=== PATIENT | female | born 1980 | race Caucasian/White ===

== ENCOUNTER 2017-05-04 02:45 | Inpatient (IN) | payer OTHER, MEDICAID ==
[~2017-05-04] VITALS: Ht 160 cm; Wt 122.2 kg
[2017-05-04 04:16] LABS: BASOPHIL % 0.3 % (0-2); PLATELET COUNT 275 x10^3mcL (130-400)
[2017-05-04 04:17] LABS: RED CELL DISTRIBUTION WIDTH 15.8 % (11.5-14.5)
[2017-05-04 04:24] LABS: CALCIUM 8.7 mg/dL (8.5-10.1); CARBON DIOXIDE 25.4 mmol/L (21-32); CHLORIDE SERUM 101 mmol/L (98-107); CREATININE SERUM 0.8 mg/dL (0.6-1.0); GFR1 > 60 mL/min; GLUCOSE SERUM 128 mg/dL (74-106); POTASSIUM SERUM 3.4 mmol/L (3.5-5.1); SODIUM SERUM 137 mmol/L (136-145)
[2017-05-04 04:37] LABS: ALBUMIN 3.8 g/dL (3.4-5.0); ALKALINE PHOSPHATASE 105 U/L (46-116); ALT/SGPT 38 U/L (14-59); AST/SGOT 34 U/L (15-37); BILIRUBIN TOTAL 0.36 mg/dL (0.20-1.00); CHOLESTEROL 151 mg/dL (<200); HDL CHOLESTEROL 59 mg/dL (40-60); TOTAL PROTEIN, SERUM 6.8 g/dL (6.4-8.2)
[2017-05-04] MEDS ORDERED: BUPROPION HCL150 M1 PO (05:33)
[2017-05-04] MEDS ORDERED: NEURONTIN600 MG PO (05:36)
[2017-05-04] MEDS ORDERED: MELOXICAM15 M1 PO (05:38)
[2017-05-04] MEDS ORDERED: COLACE100 MG PO (05:38)
[2017-05-04] MEDS ORDERED: SEROQUEL25 MG PO (05:39)
[2017-05-04] MEDS ORDERED: SYNTHROID0.05 MG PO (05:40)
[2017-05-04] MEDS ORDERED: LAMOTRIGINE100 M1 PO (05:41)
[2017-05-04] MEDS ORDERED: CYMBALTA60 M1 PO (05:42)
[2017-05-04 05:49] LABS: CHOLESTEROL/HDL RATIO 2.8; MAGNESIUM 2.1 mg/dL (1.8-2.4)
[2017-05-04 06:05] LABS: FREE T4 1.16 ng/dL (0.76-1.46); FREE THYROXINE INDEX 3.4 ug/dL (1.4-4.5); T4(THYROXINE) 9.9 ug/dL (4.7-13.3)
[2017-05-04 06:27] VITALS: BP 125/74
--- NOTE | 2017-05-04 06:37 | NUR ---
RECEIVED PT ON THE FLOOR. PT AAOX4. DENIES OF FREITAS/DIZZINESS, ON TELE MON 37 SR. DENIES OF ANY CHEST DISCOMFORT AT THIS TIME. PER PULSES MOD. NEG ON EDEMA. SCD'S APPLIED, IN RA WITH SAT OF 98%. BREATHING EVENLY AND UNLABORED. NO SOB NOTED. LUNGS CTA. BS ACTIVE. ABD ROUND AND OBESE. LAST BM TODAY DIARRHEA PER PT. VOIDS FREELY WITHOUT ANY PAIN. AMBULATES SLOWLY BUT STEADILY. ECCHYMOSIS ON R ORBIT. ADMITS TO A 4/10 PAIN ON R ORBIT. IV ON RAC PATENT. SAFETY MEASURES ENSURED. INSTRUCTED PT TO REPORT FOR ANY NEUROLOGICAL CHANGES OR IF EXPERIENCING N/V. AT THE BEDSIDE. SAFETY MEASURES ENSURED. INSTRUCTED PT TO CALL FOR ANY NEEDS/ASSISTANCE. CALL LIGHT WITHIN REACH. WILL CONT TO MONITOR PT.
[2017-05-04 07:42] LABS: T3 TOTAL 0.95 ng/mL
--- NOTE | 2017-05-04 08:47 | NUR ---
AT 0710 - RECEIVED PATIENT FROM NIGHT NURSE. PATIENT AWAKE, ALERT AND ORIENTED. NO C/O PAIN AT THIS TIME. IV INFUSING NS AT 150ML/HR. AT 0830 - SEEN BY DR NEAL DURING MORNING ROUNDS. NEW ORDERS RECEIVED. AT 0845 - ECHOCARDIOGRAM IN PROGRESS. RECEIVED ORDER FOR TRANSFER TO HIGHER LEVEL OF CARE - FACILLITY WITH OTOLANGOTOMY OR FACIOMAXILLARY SURGERY.
[2017-05-04 09:41] VITALS: BP 117/68
--- NOTE | 2017-05-04 10:57 | NUR ---
AT 1000 - IV IN RAC INFILTRATED. IV CATHETER REMOVED INTACT. IV RESITED IN LFA AND IV INFUSION OF NS RESUMED AT 150ML/HR. AT 1025 - PATIENT C/O NAUSEA AND VOMITIED SMALL AMOUNT OF BILARY FLUID. MEDICATED WITH IV ZOFRAN PER EMAR URINE COLLECTED AND TAKEN TO LAB FOR URINE CX AND UDS. AT 1055 - EATING SOME BREAKFAST AT THIS TIME. ICE PACK APPLIED TO R FACE PER NEW ORDER.
[2017-05-04 12:02] LABS: AMPHETAMINE QUAL UR NONE DETECTED (NEG <=1000)
[2017-05-04 13:18] VITALS: BP 111/54
--- NOTE | 2017-05-04 13:27 | NUR ---
PATIENT REPORTS THAT HEADACHE HAS SUBSIDED. WAS ABLE TO EAT LUNCH. NO FURTHER C/O NAUSEA OR VOMITING. AMBULATES TO BATHROOM FOR TOILET NEEDS. PATIENT DECLINED TO WEAR SCDS AT THIS TIME - SAYS THAT SHE IS MOVING HER LEGS FREQUENTLY AND AMBUALTES.
--- NOTE | 2017-05-04 16:29 | NUR ---
P.T. NOTES P.T. EVAL DONE; NURSING TO AMBULATE PATIENT AD SAIDA.
[2017-05-04 17:03] VITALS: BP 108/56
--- NOTE | 2017-05-04 17:41 | NUR ---
IV INFUSION HAS BEEN REDUCED TO 40 ML/HR PER NEW ORDERS. PATIENT TAKEN OFF CARDIAC MONITORING - STATUS CHANGED TO MED-SURG. MEDICATED WITH TYLANOL PER EMAR FOR RETURNING HEADACHE. NO NAUSEA OR VOMITING. TOLERATING REGULAR DIET. HAS HAD ICE PACK ON AND OFF TO FACE AND R EYE.
--- NOTE | 2017-05-04 18:52 | NUR ---
PATIENT HAS BEEN ACCEPTED AT [facility] UNDER CARE OF DR CANO. THEY WILL CALL US WHEN BED AVAILABLE. PATIENT REMAINS AWAKE, ALERT AND ORIENTED X 4. IV INFUSING NS AT 40ML/HR. DENIES ANY DIZZINESS. HEADACHE UNDER CONTROL WITH TYLANOL. WILL ENDORSE CARE TO NIGHT NURSE.
--- NOTE | 2017-05-04 19:32 | NUR ---
RECEIVED REPORT FROM VIANEY MONTEZ. PT RESTING COMFORTABLY IN BED IN NO ACUTE DISTRESS. ADMITS TO A 4/10 HEADACHE THAT HAS ALREADY BEEN SUBSIDED AFTER GIVEN TYLENOL FROM PREV RN. AOX4. DENIES OF DIZZINESS. PUPILS REACTIVE TO LIGHT BI. M/S. DENIES OF ANY CHEST DISCOMFORT AT THIS TIME. PER PULSES MOD. NEG ON EDEMA. SCD'S APPLIED. IN RA WITH SAT OF 96%. BREATHING EVENLY AND UNLABORED. NO SOB NOTED. LUNGS CTA. BS ACTIVE. ABD SOFT AND OBESE. LAST BM TODAY DIARRHEA PER PT REPORT. VOIDS FREELY WITHOUT ANY PAIN. AMBULATES STEADILY. ECCHYMOSIS ON R PERIORBITAL FACE. IV ON LFA PATENT. SAFETY MEASURES ENSURED. INSTRUCTED PT TO CALL FOR ANY NEEDS/ASSISTANCE OR EXPERIENCING AN ARISING NEW SYMPTOMS. WILL CONT TO MONITOR PT.
[2017-05-04 21:15] VITALS: BP 101/74
--- NOTE | 2017-05-05 05:01 | NUR ---
PT SLEPT COMFORTABLY THROUGH OUT THE NIGHT. WAS IN NO ACUTE DISTRESS OR DISCOMFORT. SAFETY MEASURES WERE ENSURED. CALL LIGHT WITHIN REACH. PT HAS BEEN NEUROLOGICALLY STABLE, AAOX4. NO EPISODES OF FREITAS/DIZZINESS OR N/V. ICE PACKS AT THE BEDSIDE GIVEN TO USE WHEN PT NEEDED.
[2017-05-05 06:42] VITALS: BP 135/84
--- NOTE | 2017-05-05 07:45 | NUR ---
SLEEPING BUT AROUSABLE, NO ACUTE RESP. DISTRESS NOTED. NO C/O PAIN OR DISCOMFORT. IVF INFUSING WELL. CALL LIGHT WITHIN REACH. WILL CONTINUE W/PLAN OF CARE.
--- NOTE | 2017-05-05 10:00 | NUR ---
AM ROUNDS DONE BY DR. NEAL AND MEDICAL TEAM. PLAN TO DC HOME AFTER SEEN BY EENT DOCTOR. PT/ AGREED WITH PLAN. CONCERNS ADDRESSED.
[2017-05-05 10:02] VITALS: BP 145/85
[2017-05-05] MEDS ORDERED: APAP/HYDROCODON1 T13 PO (10:49)
[2017-05-05 11:29] VITALS: BP 145/85
--- NOTE | 2017-05-05 12:12 | NUR ---
PT DC'D HOME IN NO DISTRESS, AWAKE, ALERT AND ORIENTED. NO C/O DIZZINESS OR FREITAS. NO C/O PAIN. DC INSTRUCTIONS REVIEWED WITH PT AND FAMILY. RX GIVEN. HL REMOVED AND SITE CLEAR. PERSONAL BELONGINGS TAKEN HOME.
== END 2017-05-05 12:10 | disposition home or self-care (01) | DRG 565 ==
LOC: ED 02:45 → DU 05:01 → MU 05:01 → DU 05:54 → MU 16:43
PROVIDERS: Emergency Medicine; ADMIT Family Medicine Sports Medicine
DX: S02.81XA Fracture of other specified skull and facial bones, right side, initial encounter for closed fracture (principal); S02.40CA Maxillary fracture, right side, initial encounter for closed fracture; Z68.42 Body mass index [BMI] 45.0-49.9, adult; F31.81 Bipolar II disorder; S02.31XA Fracture of orbital floor, right side, initial encounter for closed fracture; S00.211A Abrasion of right eyelid and periocular area, initial encounter; R55 Syncope and collapse; M79.7 Fibromyalgia; M06.9 Rheumatoid arthritis, unspecified; E03.9 Hypothyroidism, unspecified; E66.01 Morbid (severe) obesity due to excess calories; Z98.84 Bariatric surgery status; W18.39XA Other fall on same level, initial encounter; Y92.000 Kitchen of unspecified non-institutional (private) residence as the place of occurrence of the external cause
CPT/HCPCS: 83880; 84439; G0480; J0696; J2405; J3010; J7030; Q0092

== ENCOUNTER 2019-04-28 17:33 | Emergency (ER) | payer OTHER, MEDICAID ==
[~2019-04-28] VITALS: Ht 157.5 cm; Wt 103.4 kg
[~2019-04-28 17:33] MED LIST: APAP/HYDROCODON1 T13 PO; BUPROPION HCL150 M1 PO; COLACE100 MG PO; CYMBALTA60 M1 PO; LAMOTRIGINE100 M1 PO; MELOXICAM15 M1 PO; NEURONTIN600 MG PO; SEROQUEL25 MG PO; SYNTHROID0.05 MG PO
[2019-04-28 17:36] VITALS: Ht 157.5 cm; Wt 103.4 kg
[2019-04-28 19:51] VITALS: BP 109/70
== END 2019-04-28 19:51 | disposition home or self-care (01) ==
LOC: ED 17:33
DX: S61.211A Laceration without foreign body of left index finger without damage to nail, initial encounter (principal); F31.9 Bipolar disorder, unspecified; M19.90 Unspecified osteoarthritis, unspecified site; M79.7 Fibromyalgia; Z88.2 Allergy status to sulfonamides; Z91.018 Allergy to other foods; W26.0XXA Contact with knife, initial encounter; Y93.89 Activity, other specified; Y92.090 Kitchen in other non-institutional residence as the place of occurrence of the external cause; Y99.8 Other external cause status
CPT/HCPCS: J2001

== ENCOUNTER 2019-08-04 16:01 | Emergency (ER) | payer OTHER, MEDICAID ==
[~2019-08-04] VITALS: Ht 160 cm; Wt 107.0 kg
[2019-08-04 16:18] VITALS: BP 134/91; Ht 160 cm; Wt 107.0 kg
== END 2019-08-04 18:05 | disposition home or self-care (01) ==
LOC: ED 16:01
DX: S93.402A Sprain of unspecified ligament of left ankle, initial encounter (principal); S23.3XXA Sprain of ligaments of thoracic spine, initial encounter; S63.501A Unspecified sprain of right wrist, initial encounter; M06.9 Rheumatoid arthritis, unspecified; M79.7 Fibromyalgia; Z98.84 Bariatric surgery status; Z88.2 Allergy status to sulfonamides; Z91.018 Allergy to other foods; V49.3XXA Car occupant (driver) (passenger) injured in unspecified nontraffic accident, initial encounter; Y93.I9 Activity, other involving external motion; Y92.413 State road as the place of occurrence of the external cause; Y99.8 Other external cause status
CPT/HCPCS: Q0092